=== PATIENT | male | born 1995 | race Caucasian/White ===

== ENCOUNTER 2020-05-15 22:44 | Emergency (ER) | payer MEDICAID ==
--- NOTE | 2020-05-15 23:11 | ED Physician Documentation ---
PD HPI SYNCOPE - Stated complaint Stated Complaint: SZ/HEAD LAC - Chief complaint Chief Complaint: General - History obtained from History obtained from: Patient - History of Present Illness Witnessed: Witnessed Timing - onset: How many hours ago (1) Duration: Minutes Preceding symptoms: Light headed, Generalized weakness Injury occurred: None Pain level max: 0 Pain level now: 0 Recently seen: Not recently seen - Additional information Additional information: patient was lying in bed taking a nap when he was woken by sensation of swallowing blood. he got up and went to a mirror and noted he had left nare epistaxis. no recent trauma. he then again felt blood dripping down back of his throat and tasted blood, became lightheaded, experienced generalized weakness, felt like he was going to pass out. he sat down and subsequently lost consciousness for less than 1 minute. rapid return to baseline, and he is asymptomatic on this HPI. he sustained forehead abrasions which he suspects is due to striking furniture when he passed out (was seated but suspsects he fell forward) Review of Systems Ten Systems: 10 systems reviewed and negative Constitutional: reports: Reviewed and negative Eyes: reports: Reviewed and negative Ears: reports: Reviewed and negative Nose: reports: Epistaxis Cardiac: reports: Reviewed and negative Respiratory: reports: Reviewed and negative GI: reports: Reviewed and negative : denies: Incontinent Neurologic: reports: Syncope. denies: Generalized weakness, Focal weakness, Numbness, Seizure, Headache PD PAST MEDICAL HISTORY - Past Medical History Past Medical History: No - Past Surgical History Past Surgical History: No - Allergies Allergies/Adverse Reactions: Allergies Allergy/AdvReac Type Severity Reaction Status Date / Time No Known Drug Allergies Allergy Verified 05/15/20 22:49 - Social History Does the pt smoke?: Yes Smoking Status: Current every day smoker Does the pt drink ETOH?: Yes Does the pt have substance abuse?: Yes Substance Use and Type: Marijuana - Immunizations Immunizations are current?: No - POLST Patient has POLST: No PD ED PE NORMAL - Vitals Vital signs reviewed: Yes - General General: Alert and oriented X 3, No acute distress, Well developed/nourished - HEENT HEENT: PERRL, EOMI, Other (forehead abrasions (left); no tongue bite/echymosis/abrasion/lac; small clotted blood right nare, no active bleeding) - Neck Neck: No bony TTP - Cardiac Cardiac: RRR, No murmur, No gallop, No rub - Respiratory Respiratory: No respiratory distress, Clear bilaterally - Abdomen Abdomen: Soft, Non tender - Derm Derm: Normal color, Warm and dry - Extremities Extremities: No deformity - Neuro Neuro: Alert and oriented X 3, rayon coner 2-12 intact, No motor deficit, No sensory deficit, Normal speech Eye Opening: Spontaneous Motor: Obeys Commands Verbal: Oriented GCS Score: 15 - Psych Psych: Normal mood, Normal affect PD ED PE EXPANDED - General General: No acute distress. No: Alert, Well developed/nourished, Disheveled, poorly kept, Anxious, In Pain, In distress, Lethargic, Unresponsive, Other - Neuro Neuro: Dyscongugate gaze, Cerebellar nl Results - Vitals Vitals: Oxygen O2 Source Room air PD MEDICAL DECISION MAKING - ED course Complexity details: reviewed results, re-evaluated patient, considered differential, d/w patient ED course: HPI is consistent with simple vasovagal syncope. emergent testing not indicated at this time Departure - Departure Disposition: 01 Home, Self Care Clinical Impression: Vasovagal syncope, Abrasion Condition: Good Instructions: ED Abrasion, ED Syncope Vasovagal Discharge Date/Time: 05/15/20 23:46
[2020-05-15 23:46] VITALS: BP 115/55
== END 2020-05-15 23:46 | disposition home or self-care (01) ==
LOC: ED 22:44
DX: R55 Syncope and collapse (principal); S00.81XA Abrasion of other part of head, initial encounter; F17.200 Nicotine dependence, unspecified, uncomplicated
CPT/HCPCS: 99281; 99284

== ENCOUNTER 2020-07-07 15:58 | Emergency (ER) | payer MEDICAID ==
[2020-07-07 16:03] VITALS: BP 134/72
--- NOTE | 2020-07-07 16:08 | ED Physician Documentation ---
PD HPI URI - Stated complaint Stated Complaint: SINUS PX - Chief complaint Chief Complaint: General - History obtained from History obtained from: Patient - History of Present Illness Timing - onset: How many weeks ago (3 1/2) Timing duration: Weeks (3 1/2) Timing details: Gradual onset, Still present Associated symptoms: Sinus pain (frontal pain and congestion for 3 1/2 weeks. Worse the past several days, with drainage, ear pressure, and some postnasal congestion.). No: Fever Contributing factors: No: Sick contact, Travel Similar symptoms before: Diagnosis (prior sinus infections in the past.) Recently seen: Not recently seen Review of Systems Constitutional: denies: Fever, Chills Ears: reports: Ear pain (right) Nose: reports: Congestion, Sinus pressure / pain Throat: denies: Sore throat Respiratory: denies: Cough PD PAST MEDICAL HISTORY - Past Medical History Cardiovascular: None Respiratory: None Endocrine/Autoimmune: None - Past Surgical History Past Surgical History: No - Present Medications Home Medications: Ambulatory Orders Medication Instructions Recorded Confirmed Cetirizine [ZyrTEC] 10 mg PO DAILY #15 tablet 07/07/20 cephALEXin [Keflex] 500 mg PO TID #20 cap 07/07/20 dexAMETHasone [Decadron] 4 mg PO DAILY #5 tablet 07/07/20 - Allergies Allergies/Adverse Reactions: Allergies Allergy/AdvReac Type Severity Reaction Status Date / Time No Known Drug Allergies Allergy Verified 07/07/20 16:03 - Social History Does the pt smoke?: Yes Smoking Status: Current every day smoker Does the pt drink ETOH?: Yes Does the pt have substance abuse?: Yes - Immunizations Immunizations are current?: No - POLST Patient has POLST: No PD ED PE NORMAL - Vitals Vital signs reviewed: Yes - General General: Alert and oriented X 3, No acute distress, Well developed/nourished - HEENT HEENT: Ears normal, Moist mucous membranes, Pharynx benign - Neck Neck: Supple, no meningeal sign, No adenopathy - Cardiac Cardiac: RRR, No murmur - Respiratory Respiratory: Clear bilaterally - Derm Derm: Normal color, Warm and dry, No rash Results - Vitals Vitals: Vital Signs - 24 hr 07/07/20 16:01 Temperature 36.4 C L Heart Rate 64 Respiratory 20 Rate Blood Pressure 134/72 H O2 Saturation 100 Oxygen O2 Source Room air PD MEDICAL DECISION MAKING - ED course Complexity details: considered differential, d/w patient Departure - Departure Disposition: 01 Home, Self Care Clinical Impression: Acute sinusitis Qualifiers: Sinusitis location: frontal Recurrence: recurrent Qualified Code(s): J01.11 - Acute recurrent frontal sinusitis Condition: Stable Record reviewed to determine appropriate education?: Yes Instructions: ED Sinusitis Abx Tx Follow-Up: Luis Chairez MD [Primary Care Provider] - Prescriptions: dexAMETHasone [Decadron] 4 mg PO DAILY #5 tablet cephALEXin [Keflex] 500 mg PO TID #20 cap Cetirizine [ZyrTEC] 10 mg PO DAILY #15 tablet Comments: Cephalexin 3 times a day for a week as an antibiotic. Also Decadron steroid daily for 5 more days for inflammation of the sinuses. Cetirizine antihistamine daily for couple of weeks. Use some saline nasal spray several times daily to promote unclogging of the sinus opening and therefore better drainage. Tylenol or ibuprofen as needed for pains. I would anticipate improvement over the next several days to a week. Discharge Date/Time: 07/07/20 16:35
[2020-07-07] MEDS ORDERED: CHERRY SYRUP 10 ML UDC PO ONE (16:24)
[2020-07-07] MEDS ORDERED: CETIRIZINE 10 MG TABLET PO STA (16:24)
[2020-07-07] MEDS ORDERED: ACETAMINOPHEN 325 MG TABLET PO STA (16:24)
[2020-07-07] MEDS ORDERED: DEXAMETHASONE 10 MG/ML VIAL PO STA (16:24)
[2020-07-07] MEDS ORDERED: AMOXICILLIN 250 MG CAPSULE PO STA (16:24)
== END 2020-07-07 16:35 | disposition home or self-care (01) ==
LOC: ED 15:58
DX: J01.11 Acute recurrent frontal sinusitis (principal); F17.200 Nicotine dependence, unspecified, uncomplicated
CPT/HCPCS: 99283; 99284; A9270

== ENCOUNTER 2020-08-13 09:50 | Outpatient (CLI) | payer MEDICAID | END 2020-08-13 09:51 | disposition home or self-care (01) | LOC: LAB 09:50 | PROVIDERS: ATTEND Physician Assistant | DX: Z00.00 Encounter for general adult medical examination without abnormal findings (principal); Z79.899 Other long term (current) drug therapy; Z83.3 Family history of diabetes mellitus; Z82.49 Family history of ischemic heart disease and other diseases of the circulatory system; Z80.52 Family history of malignant neoplasm of bladder; Z12.5 Encounter for screening for malignant neoplasm of prostate; Z80.8 Family history of malignant neoplasm of other organs or systems; Z53.9 Procedure and treatment not carried out, unspecified reason ==